=== PATIENT | male | born 1955 | race African-American/Black ===

== ENCOUNTER 2021-03-16 12:32 | Outpatient (RCR) | payer OTHER, SELFPAY ==
--- NOTE | 2021-03-16 13:52 | REHOPWC ---
SEATING EVALUATION NOTIFICATION This is to notify provider that Micah Glasgow participated in a power mobility device evaluation today. Recommendations were made specific to patient's needs. Seating Assessment documentation has been completed for detailed information on required equipment. The mobility device provider for this case is Wily from [facility]. Please note that no further care plan will be developed on this account. Thank you for referring this patient to [facility]. Please review, sign, date and return this discharge summary MARCOS. I have been updated about the patient's current status and I agree with discharge from the above service at this time. Referring Physician Date
== END 2021-03-17 11:37 | disposition home or self-care (01) ==
LOC: ANHPT 12:32
DX: I69.359 Hemiplegia and hemiparesis following cerebral infarction affecting unspecified side (principal)
CPT/HCPCS: 97163